=== PATIENT | female | born 1955 | race Caucasian/White ===

== ENCOUNTER 2021-06-18 09:54 | Emergency (ER) | payer MEDICAID ==
[~2021-06-18] VITALS: Ht 165.1 cm; Wt 50.9 kg
[~2021-06-18 09:54] MED LIST: ALPR1TAB2 PO; ASPI81TA30 PO; ATOR20TA PO; IRON PO; PARO-62 PO; TRAZ-251 PO; VITAMIN D PO; ZIPR80CA2 PO
[2021-06-18 10:20] VITALS: BP 101/57
== END 2021-06-18 12:59 | disposition home or self-care (01) ==
LOC: ER 09:54
DX: S42.392G Other fracture of shaft of left humerus, subsequent encounter for fracture with delayed healing (principal); W18.39XD Other fall on same level, subsequent encounter; Z88.0 Allergy status to penicillin; Z88.6 Allergy status to analgesic agent; Z88.1 Allergy status to other antibiotic agents; Z88.5 Allergy status to narcotic agent; Z79.899 Other long term (current) drug therapy; Z88.8 Allergy status to other drugs, medicaments and biological substances
CPT/HCPCS: 99284